=== PATIENT | female | born 1995 | race Caucasian/White ===

== ENCOUNTER 2018-05-17 11:48 | Emergency (ER) | payer MEDICAID ==
[2018-05-17] MEDS: AMOXICILLIN 500 MG CAP PO (12:31)
[2018-05-17] MEDS: DEXAMETHASONE 10 MG/ML 1 ML INJ IM (12:31)
[2018-05-17] MEDS: IBUPROFEN 600 MG TAB PO (12:31)
== END 2018-05-17 12:47 | disposition home or self-care (01) ==
LOC: FTE 11:48
DX: J02.9 Acute pharyngitis, unspecified (principal)
CPT/HCPCS: 96372; 99284-25; J1100

== ENCOUNTER 2018-08-18 00:40 | Emergency (ER) | payer MEDICAID ==
[2018-08-18] MEDS: ACETAMINOPHEN 325 MG TAB PO (02:30)
[2018-08-18] MEDS: IBUPROFEN 200 MG TAB PO (02:30)
[2018-08-18] MEDS: AMOXICILLIN 500 MG CAP PO (02:39)
== END 2018-08-18 01:55 | disposition home or self-care (01) ==
LOC: FTE 00:40
DX: H66.91 Otitis media, unspecified, right ear (principal)
CPT/HCPCS: 99283; Z7610